=== PATIENT | female | born 1970 | race Caucasian/White ===

== ENCOUNTER 2018-05-21 08:40 | Outpatient (RCR) | payer SELFPAY | END 2018-06-09 23:59 | LOC: NS 08:40 | PROVIDERS: Visit Provider Family Medicine | DX: E66.9 Obesity, unspecified (principal); Z68.33 Body mass index [BMI] 33.0-33.9, adult; Z71.3 Dietary counseling and surveillance ==

== ENCOUNTER 2018-06-10 09:05 | Outpatient (RCR) | payer SELFPAY | END 2018-07-10 23:59 | LOC: NS 09:05 | PROVIDERS: Visit Provider Family Medicine | DX: E66.9 Obesity, unspecified (principal); Z68.33 Body mass index [BMI] 33.0-33.9, adult; Z71.3 Dietary counseling and surveillance ==

== ENCOUNTER → 2018-07-09 17:30 | Outpatient (CLI) | payer BC, SELFPAY ==
--- NOTE | 2018-07-10 | LES_PTH ---
PATIENT: DARCY FULLER LOC: [facility] U#:[id number] AGE/SX: 54/F ROOM: RE07/09/[address]: Dr. Chen Camacho MD : 1970 BED: DIS: SPEC #: [id number] RECD: 07/10/18 15:32 STATUS: DIANA SJ #: [id number] JODY: 07/10/18 00:[address]: Chen Camacho DEPT: SURGICAL PATHOLOGY RECD BY: Nj Euceda ENTERED: 07/11/18 07:44 SP TYPE: Lesion OTHR DR: No Primary Care Phys Tissues: Skin of axilla, NOS Procedures: Surgery Specimen Level IV HEADER OPERATION: Shave biopsy PRE-OP DIAGNOSIS: Cutaneous horn/skin tag left axilla TISSUE SUBMITTED: Left axilla shave biopsy specimen MICROSCOPIC DIAGNOSIS Skin lesion of left axilla, shave biopsy: Seborrheic keratosis, polypoid with focal superficial ulceration and bacterial colonization. AM:mariam 07/12/18 MICROSCOPIC DESCRIPTION Slides are reviewed. GROSS DESCRIPTION Received in fixative is one container labeled with the patient's name and designated skin tag. The specimen consists of a raisinoid fragment of light harris excised skin measuring 1 x 0.5 x 0.5 cm. The specimen is bisected along its narrow axis and totally submitted in one cassette. / AM:mariam 07/11/18 TC:5 CPT: 07857
== END ==
PROVIDERS: Referring Provider Family Medicine; Visit Provider Family Medicine
DX: L82.1 Other seborrheic keratosis (principal)
CPT/HCPCS: 88305

== ENCOUNTER 2019-10-28 05:22 | Day surgery (SDC) | payer OTHER, SELFPAY ==
[2019-10-28] VITALS (11 sets, daily range): BP systolic 82–118; BP diastolic 55–78; PULSE 69–102; RESP 16; TEMP 36.1–36.8; O2SAT 6–100; BMI 29.7
[2019-10-28] MEDS: Lactated Ringers 1,000 ML 75 ML IV (06:16)
--- NOTE | 2019-10-28 06:26 | PCM.HP.STD ---
Problem List (1) Screening for intestinal cancer Status: Acute History of Present Illness Date of Admission: 10/28/19 The patient is a 48 year old F who presents for screening colonoscopy today. She denies abdominal pain bright red blood per rectum or melena. She has not had any personal history or family history of colon polyps or colon cancer. She had a very remote colonoscopy 18 years ago. She otherwise states that she enjoys good health. She did get queasy with placement of the IV today. Past Medical History Allergies ivp dye Adverse Reaction (Uncoded 10/24/19 11:11) Nausea/Vom/Diarrhea Home Medications: Ambulatory Orders Medication Instructions Recorded Cetirizine HCl [Zyrtec] 10 mg PO QHS 10/24/19 Lisinopril/Hydrochlorothiazide 1 ea PO DAILY 10/24/19 [Lisinopril-Hctz 10-12.5 mg Tab] Multivitamin [Multiple Vitamins] 1 ea PO DAILY 10/24/19 Smoking Status: Never smoker Tobacco Use: Non-smoker Review of Systems Constitutional: Denies: Anorexia HEENT: Denies: Difficulty Swallowing Cardiovascular: Denies: Chest Pain Gastrointestinal: Denies: Abdominal Pain, Melena Endocrine: Denies: Change in Body Habitus VTE Information - Inpt Only VTE Present on Admission: No Patient Problems: Active and Suspected Problems Screening for intestinal cancer (Acute) - Physical Exam Vitals/I&O's: Vital Signs Temp Pulse Resp BP Pulse Ox 98.3 F 102 H 16 111/78 96 10/28/19 05:43 10/28/19 05:43 10/28/19 05:43 10/28/19 05:43 10/28/19 05:43 Oxygen Delivery Method Room Air Weight: 157 lb 6.561 oz Body Mass Index (BMI) 29.7 General: Alert, Oriented x3, Cooperative, No apparent distress Oral: Moist Mucosa Lungs: Clear to auscultation, Normal air movement Cardiovascular: Regular rate, Regular Rhythm Abdomen: Bowel Sounds Present, Soft, Non Tender Psych/Mental Status: Normal Affect Current Medications Lactated Ringer's () 1,000 mls @ 75 mls/hr IV .[id number] TRU Last Admin: 10/28/19 06:16 Dose: 75 mls/hr Documented by: Assessment/Plan All Active Problems Screening for intestinal cancer (Acute) I recommend for the patient is screening colonoscopy with possible biopsy or polypectomy is indicated. She is aware of the technique, benefit, risks, alternatives. She has had an opportunity to ask and have questions answered. She presents via open access. We will proceed as noted. Ernst Abbott M.D., F.A.C.S.
[2019-10-28] MEDS: Lactated Ringers 1,000 ML 999 ML IV (07:00)
--- NOTE | 2019-10-28 07:02 | OP.CCLET_ITS ---
10/28/2019 Chen Camacho [id number] [place] [address] Re : Colonoscopy procedure for Maddie Rose Dear Dr. Camacho This procedure was performed on Monday, October 28, 2019. My impressions and recommendations are as follows: Impressions : - Hemorrhoids found on perianal exam. - Diverticulosis in the sigmoid colon and in the descending colon. - Tortuous colon. - No specimens collected. Recommendations : - Discharge patient to home. - Resume previous diet. - Continue present medications. - Repeat colonoscopy in 10 years for screening purposes. My findings are described in the full procedure note, which is enclosed. If I can be of further assistance, please feel free to contact me at Doctor phone number(s): Work: . Sincerely, Ernst Abbott MD 10/28/2019 7:02:36 AM This report has been signed electronically.
--- NOTE | 2019-10-28 07:02 | OP.COLON_ITS ---
Patient Name: Maddie Rose Procedure Date: 10/28/2019 6:00 AM Date of : 1970 Age: 48 Procedure: Colonoscopy Indications: Screening for colorectal malignant neoplasm Providers: Ernst Abbott MD Referring MD: Ernst Abbott MD Medicines: Midazolam 4 mg IV, Meperidine 100 mg IV, Ondansetron 4 mg IV Patient Profile: Last Colonoscopy: more than 10 years ago. Complications: No immediate complications. Procedure: Pre-Anesthesia Assessment: - Prior to the procedure, a History and Physical was performed, and patient medications and allergies were reviewed. The patient's tolerance of previous anesthesia was also reviewed. The risks and benefits of the procedure and the sedation options and risks were discussed with the patient. All questions were answered, and informed consent was obtained. Prior Anticoagulants: The patient has taken no previous anticoagulant or antiplatelet agents. ASA Grade Assessment: II - A patient with mild systemic disease. After reviewing the risks and benefits, the patient was deemed in satisfactory condition to undergo the procedure. After I obtained informed consent, the scope was passed under direct vision. Throughout the procedure, the patient's blood pressure, pulse, and oxygen saturations were monitored continuously. The Colonoscope was introduced through the anus and advanced to the cecum, identified by appendiceal orifice and ileocecal valve. The colonoscopy was performed with moderate difficulty due to a tortuous colon. Successful completion of the procedure was aided by increasing the dose of sedation medication, changing the patient to a supine position and using manual pressure. The patient tolerated the procedure well. The quality of the bowel preparation was good. The ileocecal valve and the appendiceal orifice were photographed. Moderate Sedation: Moderate (conscious) sedation was personally administered by the endoscopist. The following parameters were monitored: oxygen saturation, heart rate, blood pressure, and response to care. Total physician intraservice time was 15 minutes. Scope In: 6:40:36 AM Scope Withdrawal Time 0 hours 6 minutes 24 seconds Scope Out: 6:58:09 AM Total Procedure Duration Time 0 hours 17 minutes 33 seconds Findings: Hemorrhoids were found on perianal exam. Scattered diverticula were found in the sigmoid colon and descending colon. The sigmoid colon was moderately tortuous. Impression: - Hemorrhoids found on perianal exam. - Diverticulosis in the sigmoid colon and in the descending colon. - Tortuous colon. - No specimens collected. Recommendation: - Discharge patient to home. - Resume previous diet. - Continue present medications. - Repeat colonoscopy in 10 years for screening purposes. Procedure Code(s): --- Professional --- 12117, Colonoscopy, flexible; diagnostic, including collection of specimen(s) by brushing or washing, when performed (separate procedure) 13875, 59, Moderate sedation services provided by the same physician or other qualified health day care assistant performing the diagnostic or therapeutic service that the sedation supports, requiring the presence of an independent trained observer to assist in the monitoring of the patient's level of consciousness and physiological status; initial 15 minutes of intraservice time, patient age 5 years or older Diagnosis Code(s): --- Professional --- Z12.11, Encounter for screening for malignant neoplasm of colon K64.9, Unspecified hemorrhoids K57.30, Diverticulosis of large intestine without perforation or abscess without bleeding Q43.8, Other specified congenital malformations of intestine CPT copyright 2017 [employer]. All rights reserved. The codes documented in this report are preliminary and upon audio director review may be revised to meet current compliance requirements. Ernst Abbott MD 10/28/2019 7:02:36 AM This report has been signed electronically. Number of Addenda: 0 Note Initiated On: 10/28/2019 6:00 AM
== END 2019-10-28 08:20 | disposition home or self-care (01) ==
LOC: EN 05:23 → AC 05:25
PROVIDERS: PCP Family Medicine; Referring Provider Surgery; Visit Provider Surgery
PROC: 0DJD8ZZ Inspection of Lower Intestinal Tract, Via Natural or Artificial Opening Endoscopic (ICD-10-PCS; CPT 45378; principal; 2019-10-28 06:25)
DX: Z12.11 Encounter for screening for malignant neoplasm of colon (principal); K57.30 Diverticulosis of large intestine without perforation or abscess without bleeding; K64.9 Unspecified hemorrhoids; Q43.8 Other specified congenital malformations of intestine; Z79.899 Other long term (current) drug therapy
CPT/HCPCS: 45378; 99152; 99153; J7120; J2405

== ENCOUNTER 2020-11-26 07:42 | Outpatient (RCR) | payer OTHER, SELFPAY ==
[2019-10-28 05:43] VITALS: BMI 29.7
[2020-11-26] MEDS: COVID-19 VACC, MRNA(PFIZER)/PF 30 MCG/0.3 ML SYRINGE IM (14:10)
[2020-12-17] MEDS: COVID-19 VACC, MRNA(PFIZER)/PF 30 MCG/0.3 ML SYRINGE IM (14:14)
== END 2020-11-26 23:59 ==
LOC: IMMUN 07:42
PROVIDERS: PCP Family Medicine; Visit Provider Family Medicine
DX: Z23 Encounter for immunization (principal)
CPT/HCPCS: 0001A; 0002A; 91300

== ENCOUNTER → 2024-10-09 | Outpatient (CLI) | payer OTHER, SELFPAY ==
--- NOTE | 2024-10-09 11:39 | RAD_ITS ---
PROCEDURE: HAND MIN 3 VIEWS; WRIST MIN 3 VIEWS REASON FOR EXAM: Pain, most prominent dorsally. TECHNIQUE: Three-view right hand and three-view right wrist series (combined dictation). COMPARISON: None. RAD/Wrist min 3 Views IMPRESSION: No radiopaque foreign body is identified. Of the right wrist, mild degenerative changes are seen of the distal radioulnar joint and the scaphoid trapezial trapezoidal joint. Chit-sf-nosvprsw degenerative changes are seen of the 1st carpal-metacarpal nora nt. Otherwise, satisfactory carpal alignment is noted. Dnse-hu-xyltpbvx degenerative changes are seen of the 1st interphalangeal joint and the remaining distal interphalangeal joints, with mild degenerative changes seen elsewhere in the hand. No evidence of inflammatory arthritis. Satisfactory osseous alignment is seen throughout. No fracture or dislocation is evident. Reading Location: [id number]
--- NOTE | 2024-10-09 11:40 | RAD_ITS ---
PROCEDURE: HAND MIN 3 VIEWS; WRIST MIN 3 VIEWS REASON FOR EXAM: Pain, most prominent dorsally. TECHNIQUE: Three-view right hand and three-view right wrist series (combined dictation). COMPARISON: None. RAD/Hand Min 3 Views IMPRESSION: No radiopaque foreign body is identified. Of the right wrist, mild degenerative changes are seen of the distal radioulnar joint and the scaphoid trapezial trapezoidal joint. Nhdx-ue-advuvgfo degenerative changes are seen of the 1st carpal-metacarpal nora nt. Otherwise, satisfactory carpal alignment is noted. Qffg-ay-amsgfknv degenerative changes are seen of the 1st interphalangeal joint and the remaining distal interphalangeal joints, with mild degenerative changes seen elsewhere in the hand. No evidence of inflammatory arthritis. Satisfactory osseous alignment is seen throughout. No fracture or dislocation is evident. Reading Location: [id number]
== END | disposition home or self-care (01) ==
LOC: MTRAD 11:37
PROVIDERS: PCP Family Medicine; Referring Provider Family Medicine; Visit Provider Family Medicine
DX: M25.531 Pain in right wrist (principal)
CPT/HCPCS: 73110; 73130

== ENCOUNTER → 2025-06-16 | Outpatient (CLI) | payer OTHER, SELFPAY | END | disposition home or self-care (01) | LOC: LABSPEC 18:48 | PROVIDERS: PCP Family Medicine; Visit Provider Nurse Practitioner Family | DX: N39.0 Urinary tract infection, site not specified (principal) | CPT/HCPCS: 87077; 87086; 87088; 87186 ==